=== PATIENT | male | born 1965 | race Hispanic/Latino ===

== ENCOUNTER 2021-01-06 09:44 | Emergency (ER) | payer OTHER, SELFPAY ==
[~2021-01-06 09:44] MED LIST: Iopamidol-370 76% 500 ML 1 ML ONE
[2021-01-06 10:46] LABS: ALT (SGPT) 39 U/L (8-55)
[2021-01-06 10:47] LABS: Large Platelets SLIGHT; MDiff Complete? YES; Mean Corpuscular HGB CONC 36.8 g/dL (32.0-36.0); Mean Corpuscular Hemoglobin 32.3 pg (27.0-31.0); Mean Corpuscular Volume 87.6 fL (78.0-98.0); Mean Platelet Volume 10.5 fL (7.4-10.4); Platelet Count 150 thou/uL (130-400); Platelet Morphology Comment Appears Adequate; RBC Distribution Width 12.2 % (11.5-14.5); RBC Morphology Normal; Red Blood Cell (RBC) Count 5.27 mill/uL (4.70-6.10)
[2021-01-06 11:21] LABS: Carbon Dioxide 24 mmol/L (22-29); Chloride 103 mmol/L (98-107); Potassium 4.6 mmol/L (3.5-5.1)
[2021-01-06 11:22] LABS: Anion Gap 18 mmol/L (10-20); BUN (Urea Nitrogen) 25 mg/dL (8.4-25.7); Bilirubin, Total 0.4 mg/dL (0.2-1.2); Calc. Creatinine Clearance 0 mL/min (70-130); Calcium 8.9 mg/dL (7.8-10.44); Glucose 127 mg/dL (70-105)
[2021-01-06 11:23] LABS: AST (SGOT) 56 U/L (5-34); Albumin 4.2 g/dL (3.5-5.0); Alkaline Phosphatase 64 U/L (40-110); Globulin 5.8 g/dL (2.4-3.5); Lipase 120 U/L (8-78)
[2021-01-06 11:24] LABS: Sodium 140 mmol/L (136-145)
[2021-01-06] MEDS ORDERED: Ketorolac Tromethamine 30 MG/ML VIAL ONE (12:19)
== END 2021-01-06 12:24 | disposition home or self-care (01) ==
LOC: ERS 09:44
DX: M25.561 Pain in right knee (principal); M25.511 Pain in right shoulder; V69.9XXA Occupant (driver) (passenger) of heavy transport vehicle injured in unspecified traffic accident, initial encounter
CPT/HCPCS: 70450; 71260; 72125; 74177; 80053; 83690; 85025; 96374; J1885; Q9967